=== PATIENT | female | born 1955 | race Caucasian/White ===

== ENCOUNTER → 2019-12-04 09:01 | Outpatient (CLI) | payer MEDICARE, OTHER, SELFPAY ==
--- NOTE | 2019-12-04 09:05 | DI.RAD.S_ITS ---
PROCEDURE: XR LUMBAR SPINE MIN 4V INDICATIONS: Progressive low back pain TECHNIQUE: For views of the lumbar spine were acquired. COMPARISON: None. FINDINGS: Bones: No fracture or focal osseous destruction. Multilevel degenerative endplate sclerosis and spurring. Diffuse facet arthropathy. Grade 1 retrolisthesis of L1 on L2. Trace retrolisthesis of L4 on L5. Postsurgical changes related L5-S1 posterior spinal fixation with paraspinal rods and pedicle screws. There is residual grade 1 anterolisthesis of L5 on S1. Severe narrowing of the L1-L2 disc space. Moderate narrowing of the L2-L3 disc space. Mild dextrocurvature. Bilateral hip arthroplasties. Soft tissues: Overlying bowel gas pattern is normal. No suspicious soft tissue calcifications. Oblique images: No pars defects. IMPRESSION: Multilevel lumbar spondylosis most severe at L1-L2 and L2-L3, and postsurgical changes at L5-S1 as above. Dextrocurvature Dictated by: Jean Claude Childers M.D. on 12/04/2019 at 10:22 Approved by: Jean Claude Childers M.D. on 12/04/2019 at 10:25
== END ==
PROVIDERS: PCP Family Medicine; Referring Provider Physical Medicine & Rehabilitation; Visit Provider Physical Medicine & Rehabilitation
DX: M54.5 Low back pain (principal); M47.26 Other spondylosis with radiculopathy, lumbar region; M41.9 Scoliosis, unspecified; Z98.1 Arthrodesis status; Z96.643 Presence of artificial hip joint, bilateral
CPT/HCPCS: 72110; 99214

== ENCOUNTER → 2019-12-06 19:02 | Outpatient (CLI) | payer MEDICARE, OTHER, SELFPAY ==
--- NOTE | 2019-12-06 19:04 | DI.MRI.S_ITS ---
PROCEDURE: MR LUMBAR SPINE WO CON INDICATIONS: Status post L5-S1 fusion TECHNIQUE: Noncontrast sagittal T1 spin echo and T2 fast echo, sagittal STIR, axial T1 and T2 fast spin echo through the lumbar spine. In cases with scoliosis, additional coronal T2 fast spin echo may be performed. COMPARISON: [facility] , MR, LUMBAR SPINE W/O CONTRAST, 02/23/2008, 13:53. [facility], MR, LUMBAR SPINE W/O CONTRAST, 11/09/2013, 17:35. [facility], CR, XR LUMBAR SPINE MIN 4V, 12/04/2019, 9:22. FINDINGS: Image quality: Excellent. Alignment and Curvature: There is mild L5-S1 anterolisthesis. There is mild L1-L2 retrolisthesis. There is trace L2-L3 and L3-L4 retrolisthesis. Bones: Postsurgical changes compatible with L5-S1 PLIF. Reactive endplate changes noted adjacent to the L1-L2 and L2-L3 discs. No acute vertebral body compression fractures. Spinal Cord: Conus medullaris terminates at the L1 level. Visualized cord demonstrates normal signal and size. Paraspinous Soft Tissues: No paravertebral masses. Large partially visualized left renal cyst. L1-L2: Loss of disc signal and height. Moderate, diffuse disc bulge. Mild bilateral facet hypertrophy. Mild to moderate narrowing of the central canal. Moderate right and mild left neural foraminal narrowing. No neural compression. L2-L3: Loss of disc signal and height. Mild, diffuse disc bulge. Mild bilateral facet hypertrophy. Mild narrowing of the central canal. Mild bilateral neural foraminal narrowing. No neural compression. L3-L4: Loss of disc signal. Mild bilateral facet hypertrophy. No central stenosis. Mild left neural foraminal narrowing. No neural compression. L4-L5: Loss of disc signal. Mild, diffuse disc bulge. Moderate bilateral facet hypertrophy. Mild to moderate narrowing of the central canal. Mild right and [id number] left neural foraminal narrowing. No neural compression. L5-S1: Status post fusion. Moderate bilateral facet hypertrophy. No central stenosis. No neural foraminal narrowing. No neural compression. IMPRESSION: 1. Status post L5-S1 PLIF. 2. Multilevel degenerative disease. 3. Multilevel facet arthropathy. 4. Grade 1 L1-L2 and L5-S1 degenerative spondylolisthesis. 5. No significant central canal narrowing. 6. No significant neural foraminal narrowing. 7. No neural compression. Dictated by: Julia Becker MD, PhD on 12/07/2019 at 14:44 Approved by: Julia Becker MD, PhD on 12/07/2019 at 14:49
== END ==
PROVIDERS: PCP Family Medicine; Referring Provider Physical Medicine & Rehabilitation; Visit Provider Physical Medicine & Rehabilitation
DX: M47.816 Spondylosis without myelopathy or radiculopathy, lumbar region (principal); M51.36 Other intervertebral disc degeneration, lumbar region; M43.16 Spondylolisthesis, lumbar region; M43.17 Spondylolisthesis, lumbosacral region; Z98.1 Arthrodesis status
CPT/HCPCS: 72148

== ENCOUNTER 2020-02-01 07:37 | Outpatient (CLI) | payer MEDICARE, OTHER, SELFPAY ==
[2020-02-01] VITALS (8 sets, daily range): BP systolic 147–192; BP diastolic 79–106; PULSE 60–75; RESP 11–20; TEMP 36.2; O2SAT 98–100
--- NOTE | 2020-02-01 08:47 | DI.RAD.S_ITS ---
PROCEDURE: PAIN L/SI FACET INJ/BLK 1STL INDICATIONS: SPONDYLOSIS COMPARISON: [facility], CR, XR LUMBAR SPINE MIN 4V, 12/04/2019, 9:22. [facility], MR, MR LUMBAR SPINE WO CON, 12/06/2019, 19:11. FINDINGS: Fluoroscopic spot filming was performed to verify placement of spinal needles at the L3-4 and L4-5 levels on the right, as labeled on the films. Appropriate location(s) of the needle tip(s) was confirmed by injection of iodinated contrast. IMPRESSION: Intraprocedural examination within normal limits. Dictated by: Donavan Hernandez M.D. on 02/01/2020 at 8:45 Approved by: Donavan Hernandez M.D. on 02/01/2020 at 8:45
[2020-02-01] MEDS: fentaNYL 100 MCG/2 ML INJ 50 MCG IV (09:09)
[2020-02-01] MEDS: MIDAZOLAM 5 MG/5 ML VIAL IV (09:09)
[2020-02-01] MEDS: BUPIVACAINE 0.25% (PF) VIAL 2 ML INJ (09:15)
[2020-02-01] MEDS: IOPAMIDOL 15 ML VIAL 3 ML INJ (09:17)
[2020-02-01] MEDS: BETAMETHASONE 30 MG/5 ML MDV 12 MG INJ (09:17)
--- NOTE | 2020-02-01 09:28 | P.PCN_ITS ---
Date/Time/Diagnoses Date of procedure: 02/01/20 Time of procedure: 09:28 Pre-procedure diagnosis: 1. FACET ARTHROPATHY, 2. AXIAL LBP, 3. MULTILEVEL DDD Post-procedure diagnosis: same Procedure Notes Procedure: 1. FLUOROSCOPICALLY GUIDED CONTRAST CONTROLLED FACET JOINT INJECTIONS RIGHT L3/4, L4/5 Indications: Byron is referred by Dr. Sky for treatment of Axial LBP Physician: Eddi Hsieh Total Fluoroscopy time (seconds): 9 Total sedation minutes: 12 Complications: none Procedure in detail & Post-procedure care: FINDINGS Multilevel Facet Arthropathy with Clinically significant axial LBP DESCRIPTION OF PROCEDURE Fluoroscopically guided, contrast-controlled right L3/4, L4/5 facet joint injections. Following review of allergy and review of potential side effects and complications, including, but not necessarily limited to, infection, allergic reaction, local tissue breakdown, stroke, temporary or permanent nerve injury, paralysis, and possible , the patient indicated that the patient understood and agreed to proceed. An informed consent document was signed by the patient, witnessed by a nurse, and placed in the patient's chart. Additionally, other t reatment options including medications, modalities, and physical therapy were reviewed with the patient. After review of previous anaesthesic history and IV conscious sedation the patient was deemed safe to proceed with today?s procedure with IV conscious sedation as ASA class II designation. Safety time-out was performed to confirm patient ID, procedure to be performed and site of procedure. IV sedation was accomplished with a combination of 3mg of Versed and 50mcg of Fentanyl administered by the RN after DO order, titrated to patient comfort during the course of the procedure while the patient remained responsive to all verbal commands. In the prone position, following sterile prep and drape of the lumbar region, the posterior aspect of the right L3/4, L4/5 facet joints were identified fluoroscopically. The skin was anesthetized via a 25-gauge 1.5-inch needle with 1% lidocaine solution into the corresponding facet joints. At this point, a 22- gauge 3.5-inch spinal needle was atraumatically introduced and advanced under fluoroscopic guidance into the corresponding facet joints. Following negative aspiration, injections of approximately 0.2-cc of Isovue 200 confirmed interarticular placement without vascular uptake. Radiological data, including multiple fluoroscopic views of the lumbosacral spine, reveal a spinal needle at the right L3/4, L4/5 facet joints. Subsequent views show flow of contrast material both superiorly and inferiorly within the joint space without vascular or intrathecal uptake. At this point, a total of 0.5cc including a mixture of 0.25cc Marcaine and 0.25cc betamethasone was injected without complication into each of the corresponding facet joints. The patient tolerated the procedure well without signs or symptoms of complications prior to transfer to the recovery area for further monitoring. The patient was then transferred to the recovery area where they were observed for an appropriate period of time after the injection. The patient reported a VAS score of 7 prior to the procedure and a post-procedure VAS of 0. POST OP INSTRUCTIONS The patient was provided a Pain Log to continue to record their response to the target-specific procedure prior to follow-up visit with their referring physician. Additionally, specific post-injection care instructions and a contact number to our office were provided if concerns arise regarding possible complications associated with the procedure are suspected.
== END 2020-02-01 10:02 | disposition home or self-care (01) ==
LOC: RAD 07:40
PROVIDERS: PCP Family Medicine; Referring Provider Family Medicine; Visit Provider Physical Medicine & Rehabilitation
DX: M47.816 Spondylosis without myelopathy or radiculopathy, lumbar region (principal); M54.5 Low back pain; M51.36 Other intervertebral disc degeneration, lumbar region
CPT/HCPCS: 64493; 64494; 99152; J0702; J2250; J3010

== ENCOUNTER → 2020-04-23 14:15 | Outpatient (CLI) | payer MEDICARE, OTHER, SELFPAY ==
[2020-04-23 15:32] LABS: COVID19 -Nasal RAPID Negative (Negative)
== END ==
PROVIDERS: PCP Family Medicine; Visit Provider Physical Medicine & Rehabilitation
DX: Z01.812 Encounter for preprocedural laboratory examination (principal); Z20.828 Contact with and (suspected) exposure to other viral communicable diseases
CPT/HCPCS: 87635; C9803

== ENCOUNTER 2020-04-25 14:53 | Outpatient (CLI) | payer MEDICARE, OTHER, SELFPAY ==
[2020-04-25] VITALS (7 sets, daily range): BP systolic 161–195; BP diastolic 101–123; PULSE 72–97; RESP 10–20; TEMP 36.6; O2SAT 100
--- NOTE | 2020-04-25 14:54 | DI.RAD.S_ITS ---
PROCEDURE: PAIN L/SI FACET INJ/BLK 1STL INDICATIONS: SPONDYLOSIS COMPARISON: None. FINDINGS: Fluoroscopic spot filming was performed to verify placement of spinal needles at the right L3, L4 and L5 level(s), as labeled on the films. Appropriate location(s) of the needle tip(s) was confirmed by injection of iodinated contrast. IMPRESSION: Fluoroscopy for pain management. Dictated by: Chelsie Kang M.D. on 04/25/2020 at 17:34 Approved by: Chelsie Kang M.D. on 04/25/2020 at 17:34
[2020-04-25] MEDS: MIDAZOLAM 5 MG/5 ML VIAL IV (15:45)
[2020-04-25] MEDS: fentaNYL 100 MCG/2 ML INJ 50 MCG IV (15:45)
[2020-04-25] MEDS: IOPAMIDOL 15 ML VIAL 3 ML INJ (15:47)
[2020-04-25] MEDS: BUPIVACAINE 0.5% (PF) VIAL 5 ML INJ (15:48)
--- NOTE | 2020-04-25 16:25 | PM.PROC.IR.1 ---
Date/Time/Diagnoses Date of procedure: 04/25/20 Time of procedure: 16:25 Pre-procedure diagnosis: 1. FACET ARTHROPATHY Post-procedure diagnosis: same Procedure Notes Procedure: 1. RIGHT L3, L4 AND L5 DIAGNOSTIC MB BLOCKS Indications: Byron is referred by Dr. Sky for treatment of Bilateral Axial LBP. Physician: Eddi Hsieh Total Fluoroscopy time (seconds): 6 Total sedation minutes: 10 Complications: none Procedure in detail & Post-procedure care: DESCRIPTION OF PROCEDURE Fluoroscopically guided, contrast-controlled right L3, L4 AND L5 medial branch blocks with 0.5cc of 0.5% Marcaine. Following review of allergy and review of potential side effects and complications, including, but not necessarily limited to, infection, allergic reaction, local tissue breakdown, nerve injury, paralysis, stroke and possible , the patient indicated that the patient understood and agreed to proceed. An informed consent document was signed by the patient, witnessed by a nurse, and placed in the patient's chart. After review of previous anaesthesic history and IV conscious sedation the patient was deemed safe to proceed with today's procedure with IV conscious sedation as ASA class II designation. Safety time-out was performed to confirm patient ID, procedure to be performed and site of procedure. IV sedation was accomplished with a combination of 2mg of Versed and 50mcg of Fentantyl was administered by the RN after DO order, titrated to patient comfort during the course of the procedure while the patient remained responsive to all verbal commands In the prone position, following sterile prep and drape of the lumbar region, the right L3, L4 AND L5 anatomical location of the medial branch of the dorsal ramus was identified fluoroscopically. Subsequently an anesthetic skin wheal using 1% lidocaine solution was initiated at each of the anatomical spots. Subsequently then a 22-gauge 3.5-inch spinal needle was atraumatically introduced and advanced under fluoroscopic guidance at each of the corresponding sites at the right L3, L4 and L5 MB. After negative aspiration, 0.2cc of Isovue 200 was injected, confirming placement without vascular or intrathecal uptake. Subsequently then 0.5cc of 0.5% Marcaine solution was injected at each of the corresponding sites at the right L3, L4 and L5 medial branch locations. The patient tolerated the procedure well without signs or symptoms of complications. The patient tolerated the procedure well without signs or symptoms of complications prior to transfer to the recovery area continued monitoring without incident. Post-procedure, the patient was monitored initiating provocative activities to measure the amount of relief from block of the facetogenic pain. The patient reported a VAS of 7 prior to the procedure and a post-procedure VAS of 1. It has been a pleasure to assist in the diagnostic and therapeutic care of your patient. POST OP INSTRUCTIONS The patient was provided with a Pain Log to complete over the next several hours and subsequent days prior to the patient's follow up with the ordering physician. If the patient has heat treating operator relief to the solution applied, then they may be a candidate for medial branch rhizotomy. The patient is aware, was provided, once again, with a Pain Log and will follow up with the referring physician for review and clinical correlation
== END 2020-04-25 16:15 | disposition home or self-care (01) ==
PROVIDERS: PCP Family Medicine; Referring Provider Physical Medicine & Rehabilitation; Visit Provider Physical Medicine & Rehabilitation
DX: M47.816 Spondylosis without myelopathy or radiculopathy, lumbar region (principal)
CPT/HCPCS: 64493; 64494; 99152; J2250; J3010

== ENCOUNTER → 2020-10-29 09:27 | Outpatient (CLI) | payer MEDICARE, OTHER, SELFPAY ==
[2020-10-29 12:54] LABS: COVID19 -Nasal RAPID Negative (Negative)
== END ==
PROVIDERS: PCP Family Medicine; Visit Provider Physical Medicine & Rehabilitation
DX: Z20.822 Contact with and (suspected) exposure to COVID-19 (principal)
CPT/HCPCS: 87635; C9803

== ENCOUNTER 2020-10-31 10:39 | Outpatient (CLI) | payer MEDICARE, OTHER, SELFPAY ==
[2020-10-31] VITALS (12 sets, daily range): BP systolic 134–183; BP diastolic 73–96; PULSE 74–87; RESP 11–18; TEMP 36.4–36.6; O2SAT 98–100
--- NOTE | 2020-10-31 10:43 | DI.RAD.S_ITS ---
PROCEDURE: PAIN L/S MED/LAT N RFA INDICATIONS: SPONDYLOSIS COMPARISON: None. FINDINGS: Fluoroscopic spot filming was performed to verify placement of spinal needles at the L3, L4, L5 level(s), as labeled on the films. Appropriate location(s) of the needle tip(s) was confirmed by injection of iodinated contrast. Dictated by: Jean Claude Childers M.D. on 10/31/2020 at 14:26 Approved by: Jean Claude Childers M.D. on 10/31/2020 at 14:27
[2020-10-31] MEDS: fentaNYL 100 MCG/2 ML INJ 50 MCG IV (11:37)
[2020-10-31] MEDS: MIDAZOLAM 5 MG/5 ML VIAL IV (11:37)
[2020-10-31] MEDS: BUPIVACAINE 0.5% (PF) VIAL 5 ML INJ (11:41)
[2020-10-31] MEDS: LIDOCAINE 1% 20 ML 10 ML INJ (11:41)
--- NOTE | 2020-10-31 12:17 | P.PCN_ITS ---
Date/Time/Diagnoses Date of procedure: 10/31/20 Time of procedure: 12:17 Pre-procedure diagnosis: 1. RECALCITRANT FACET ARTHROPATHY Post-procedure diagnosis: same Procedure Notes Procedure: 1. BILATERAL L3, L4 AND L5 MEDIAL BRANCH RADIOFREQUENCY NEUROTOMY Indications: Byron is referred by Dr. Sky for treatment of facet arthropathy. Physician: Eddi Hsieh Total Fluoroscopy time (seconds): 17 Total sedation minutes: 29 Complications: none Procedure in detail & Post-procedure care: DESCRIPTION OF PROCEDURE Bilateral L3, L4 and L5 medial branch radiofrequency neurotomy The patient is well known to this clinic having undergone previous facet injections with good but temporary relief. The patient has experienced appropriate, concordant relief with previous facet and median branch blocks but the patient's pain has been recalcitrant to further conservative measures. Therefore, based upon the patient's relief and persistent symptoms, the patient is considered an appropriate candidate for facet rhizotomy. All of the patient's questions regarding the risks versus benefits of the procedure, including, but not limited to, bleeding, infection, temporary as well as lasting nerve injury, paralysis, stroke, and , as well treatment alternatives were answered to satisfaction. After obtaining informed consent, denial of pertinent drug allergies, as well as being made aware of the potential risks of bleeding, infection, spinal cord trauma, paralysis, temporary and permanent nerve damage, seizure, stroke, and possible , the patient was brought to the fluoroscopy suite and positioned prone on the fluoroscopy table. The lumbar region was prepped with Betadine and covered with a fenestrated drape in the usual sterile fashion. Appropriate monitors applied including pulse oximeter, pulse, and blood pressure for regular monitoring throughout the procedure. After review of previous anaesthesic history and IV conscious sedation the patient was deemed safe to proceed with today's procedure with IV conscious sedation as ASA class II designation. Safety time-out was performed to confirm patient ID, procedure to be performed and site of procedure. IV sedation was accomplished with a combination of 4mg of Versed and 50mcg of Fentanyl administered by the RN after DO order, titrated to patient comfort during the course of the procedure while the patient remained responsive to all verbal commands. After local infiltration using 1% lidocaine, under fluoroscopic guidance, a 15- cm RF insulated needle with a 10-mm active tip was positioned parallel to the junction of the right the superior articulating process where the L5 medial branch resides. Needle placement was confirmed with motor stimulation of .5v on the right which produced local stimulation without radicular component. The stimulation was then increased to 2v with, once again, only local multifidus stimulation without radicular component. The needle was then removed and the identical procedure was performed along the length of the right L4 medial branch with motor stimulation at .7v on the right. The identical procedure was once again performed along the length of the right L3 and medial branch with motor stimulation of .5v on the right. The medial branches were then anesthetised with 0.5% marcaine. This was then followed by two discreet lesions performed at 80 degrees Celsius for 90 seconds each. The identical procedures were repeated on the left. The patient tolerated the procedure well without signs or symptoms of complications prior to transfer to the recovery area continued monitoring without incident. The patient was then transferred to the recovery area where they were observed for an appropriate period of time after the injection. The patient reported a VAS score of 9 prior to the procedure and a post-procedure VAS of 0. POST OP INSTRUCTIONS The patient was provided a Pain Log to continue to record the patient's response to the target-specific procedure prior to the patient's follow-up visit with the referring physician. Additionally, specific post-injection care instructions and a contact number to our office were provided if concerns arise regarding possible complications associated with the procedure are suspected.
== END 2020-10-31 12:33 | disposition home or self-care (01) ==
LOC: RAD 10:42
PROVIDERS: PCP Family Medicine; Referring Provider Physical Medicine & Rehabilitation; Visit Provider Physical Medicine & Rehabilitation
DX: M47.816 Spondylosis without myelopathy or radiculopathy, lumbar region (principal); M47.817 Spondylosis without myelopathy or radiculopathy, lumbosacral region
CPT/HCPCS: 64635; 64636; 99152; 99153; J2250; J3010

== ENCOUNTER 2020-12-19 07:24 | Outpatient (CLI) | payer MEDICARE, OTHER, SELFPAY ==
[2020-12-19] VITALS (7 sets, daily range): BP systolic 110–151; BP diastolic 65–81; PULSE 77–83; RESP 10–20; TEMP 36.1; O2SAT 96–100
--- NOTE | 2020-12-19 07:26 | DI.RAD.S_ITS ---
PROCEDURE: PAIN L/S TRANSFORAMINAL INJECT INDICATIONS: SPONDYLOSIS COMPARISON: Merged With [facility], , PAIN L/S MED/LAT N RFA, 10/31/2020, 11:42. FINDINGS: Fluoroscopic spot filming was performed to verify placement of a spinal needle at the L1-L2 level, as labeled on the films. Appropriate location of the needle tip was confirmed by injection of iodinated contrast. IMPRESSION: Intraprocedural examination within normal limits. Dictated by: Donavan Hernandez M.D. on 12/19/2020 at 10:12 Approved by: Donavan Hernandez M.D. on 12/19/2020 at 10:12
[2020-12-19] MEDS: MIDAZOLAM 5 MG/5 ML VIAL IV (08:21)
[2020-12-19] MEDS: fentaNYL 100 MCG/2 ML INJ 50 MCG IV (08:21)
[2020-12-19] MEDS: IOPAMIDOL 15 ML VIAL 3 ML INJ (08:28)
[2020-12-19] MEDS: BUPIVACAINE 0.25% (PF) VIAL 2 ML INJ (08:28)
[2020-12-19] MEDS: DEXAMETHASONE 10 MG/ML VIAL 20 MG INJ (08:29)
[2020-12-19] MEDS: BETAMETHASONE 30 MG/5 ML MDV 6 MG INJ (08:29)
--- NOTE | 2020-12-19 08:39 | P.PCN_ITS ---
Date/Time/Diagnoses Date of procedure: 12/19/20 Time of procedure: 08:39 Pre-procedure diagnosis: 1. FORAMINAL STENOSIS WITH LE SYMPTOMS Post-procedure diagnosis: same Procedure Notes Procedure: 1. FLUOROSCOPICALLY GUIDED CONTRAST CONTROLLED TRANSFORAMINAL EPIDURAL STEROID INJECTION - RIGHT L1/2 TFESI Indications: Byron is referred by Dr. Sky for treatment of Foraminal Stenosis with right LE Symptoms Physician: Eddi Hsieh Total Fluoroscopy time (seconds): 8 Total sedation minutes: 12 Complications: none Procedure in detail & Post-procedure care: FINDINGS Foraminal Nerve Root Compression secondary to disc disease and facet hypertrophy DESCRIPTION OF PROCEDURE Following review of allergy and review of potential side effects and complications, including, but not necessarily limited to, infection, allergic reaction, local tissue breakdown, stroke, temporary or permanent nerve injury, paralysis, and possible , the patient indicated that the patient understood and agreed to proceed. An informed consent document was signed by the patient, witnessed by a nurse, and placed in the patient's chart. Additionally, other treatment options including medications, modalities, and physical therapy were reviewed with the patient. After review of previous anaesthesic history and IV conscious sedation the patient was deemed safe to proceed with today?s procedure with IV conscious sedation as ASA class II designation. Safety time-out was performed to confirm patient ID, procedure to be performed and site of procedure. IV sedation was accomplished with a combination of 4mg of Versed and 50mcg of Fentanyl was administered by the RN after DO order, titrated to patient comfort during the course of the procedure while the patient remained responsive to all verbal commands In the prone position following sterile prep and drape of the lumbar region, the right L1/2 posterior neuroforamen was identified fluoroscopically. The skin was anesthetized via a 25-gauge 1.5-inch needle with 1% lidocaine solution. At this point, a 25-gauge 3.5-inch spinal needle was atraumatically introduced and advanced under fluoroscopic guidance through the posterior right L1/2 neurofo ramen to approximately the anterior aspect of the canal. Depth was confirmed on lateral view. Following negative aspiration, injection of approximately 1.5cc of Isovue 200 under live fluoroscopy in the AP view confirmed excellent flow along the nerve root, into the epidural space without vascular or intrathecal uptake observed Radiological data, including multiple fluoroscopic views of the lumbosacral spine, reveal a spinal needle at the right L1/2 posterior neuroforamen. Subsequent views show flow of contrast material flowing superiorly and inferiorly along the nerve root confirming epidural flow. Subsequently, a test dose of 1.5 cc of 1% lidocaine solution was administered and patient was observed for two minutes for signs or symptoms of complications, including abdominal pain, shortness of breath, bilateral upper or lower extremity weakness, nausea and vomiting, prior to steroid injection. At this point, a total of 2cc or 20mg of dexamethasone and 6mg of betamethasone was injected without incident. The patient tolerated the procedure well without signs or symptoms of complications prior to transfer to the recovery area continued monitoring without incident. The patient was then transferred to the recovery area where they were observed for an appropriate time after the injection. The patient reported a VAS score of 7 prior to the procedure and a post-procedure VAS of 0. POST OP INSTRUCTIONS The patient was provided a Pain Log to continue to record their response to the target-specific procedure prior to follow-up visit with their referring physician. Additionally, specific post-injection care instructions and a contact number to our office were provided if concerns arise regarding possible complications associated with the procedure are suspected.
== END 2020-12-19 08:53 | disposition home or self-care (01) ==
LOC: RAD 07:26
PROVIDERS: PCP Family Medicine; Referring Provider Physical Medicine & Rehabilitation; Visit Provider Physical Medicine & Rehabilitation
DX: M48.061 Spinal stenosis, lumbar region without neurogenic claudication (principal); M51.16 Intervertebral disc disorders with radiculopathy, lumbar region
CPT/HCPCS: 64483; 99152; J0702; J1100; J2250; J3010

== ENCOUNTER → 2021-03-12 12:35 | Outpatient (CLI) | payer MEDICARE, OTHER, SELFPAY ==
--- NOTE | 2021-03-12 12:40 | DI.RAD.S_ITS ---
PROCEDURE: XR LUMBAR SPINE MIN 4V INDICATIONS: back pain TECHNIQUE: 5 views of the lumbar spine were acquired, including bilateral oblique views. COMPARISON: [facility], , XR LUMBAR SPINE MIN 4V, 12/04/2019, 9:22. FINDINGS: Bones: 5 nonrib-bearing vertebrae are present. Posterior element fixation at L5-S1 with discectomy and persistent anterolisthesis. No hardware compromise is appreciated. No vertebral body compression fractures. No suspicious bony lesions. Mild levocurvature, possibly positional. Bilateral hip arthroplasties are seen. Soft tissues: Overlying bowel gas pattern is normal. No suspicious soft tissue calcifications. Oblique images: No L1 -L4 pars defects. IMPRESSION: No significant interval change. Dictated by: Govind Goode M.D. on 03/12/2021 at 13:35 Approved by: Govind Goode M.D. on 03/12/2021 at 13:38
== END ==
PROVIDERS: PCP Family Medicine; Referring Provider Physical Medicine & Rehabilitation; Visit Provider Physical Medicine & Rehabilitation
DX: M47.26 Other spondylosis with radiculopathy, lumbar region (principal); M43.17 Spondylolisthesis, lumbosacral region; M41.25 Other idiopathic scoliosis, thoracolumbar region; N28.9 Disorder of kidney and ureter, unspecified; Z98.1 Arthrodesis status; Z96.643 Presence of artificial hip joint, bilateral
CPT/HCPCS: 72110; 99214

== ENCOUNTER 2021-03-27 07:17 | Outpatient (CLI) | payer MEDICARE, OTHER, SELFPAY ==
[2021-03-27] VITALS (10 sets, daily range): BP systolic 122–186; BP diastolic 81–105; PULSE 78–83; RESP 10–23; TEMP 36.4; O2SAT 97–100
--- NOTE | 2021-03-27 07:20 | DI.RAD.S_ITS ---
PROCEDURE: PAIN L/S MED/LAT N RFA BILAT INDICATIONS: SPONDYLOSIS COMPARISON: Merged With [facility], CR, XR LUMBAR SPINE MIN 4V, 03/12/2021, 12:35. M[facility]ed With [facility], XA, PAIN L/S TRANSFORAMINAL INJECT, 12/19/2020, 8:27. FINDINGS: Fluoroscopic spot filming was performed to verify placement of spinal needles at the L5 and S1 levels on both sides, as labeled on the films. IMPRESSION: Intraprocedural examination within normal limits. Dictated by: Donavan Hernandez M.D. on 03/27/2021 at 8:38 Approved by: Donavan Hernandez M.D. on 03/27/2021 at 8:39
[2021-03-27] MEDS: MIDAZOLAM 5 MG/5 ML VIAL IV (08:50)
[2021-03-27] MEDS: fentaNYL 100 MCG/2 ML INJ 50 MCG IV (08:50)
[2021-03-27] MEDS: BUPIVACAINE 0.5% (PF) VIAL 5 ML INJ (08:57)
[2021-03-27] MEDS: LIDOCAINE 1% 20 ML INJ (08:58)
--- NOTE | 2021-03-27 09:17 | P.PCN_ITS ---
Date/Time/Diagnoses Date of procedure: 03/27/21 Time of procedure: 09:17 Pre-procedure diagnosis: 1. RECALCITRANT FACET ARTHROPATHY Post-procedure diagnosis: same Procedure Notes Procedure: 1. BILATERAL L5 MEDIAL BRANCH RADIOFREQUENCY NEUROTOMY AND BILATERAL S1 DORSAL RAMUS BRANCH RADIOFREQUENCY NEUROTOMY. Indications: Byron is referred by Dr. Sky for treatment of facet arthropathy. Physician: Eddi Hsieh Total Fluoroscopy time (seconds): 17 Total sedation minutes: 22 Complications: none Procedure in detail & Post-procedure care: DESCRIPTION OF PROCEDURE Bilateral L5 medial branch radiofrequency neurotomy and bilateral S1 dorsal ramus branch radiofrequency neurotomy under fluoroscopy with conscious sedation. The patient is well known to this clinic having undergone previous facet injections with good but temporary relief. The patient has experienced appropriate, concordant relief with previous facet and median branch blocks but the patient's pain has been recalcitrant to further conservative measures. Therefore, based upon the patient's relief and persistent symptoms, the patient is considered an appropriate candidate for facet rhizotomy. All of the patient's questions regarding the risks versus benefits of the procedure, including, but not limited to, bleeding, infection, temporary as well as lasting nerve injury, paralysis, stroke, and , as well treatment alternatives were answered to satisfaction. After obtaining informed consent, denial of pertinent drug allergies, as well as being made aware of the potential risks of bleeding, infection, spinal cord trauma, paralysis, temporary and permanent nerve damage, seizure, stroke, and possible , the patient was brought to the fluoroscopy suite and positioned prone on the fluoroscopy table. The lumbar region was prepped with Betadine and covered with a fenestrated drape in the usual sterile fashion. Appropriate monitors applied including pulse oximeter, pulse, and blood pressure for regular monitoring throughout the procedure. After review of previous anaesthesic history and IV conscious sedation the patient was deemed safe to proceed with today?s procedure with IV conscious sedation as ASA class II designation. Safety time-out was performed to confirm patient ID, procedure to be performed and site of procedure. IV sedation was accomplished with a combination of 3mg of Versed and 50mcg of Fentanyl was administered by the RN after DO order, titrated to patient comfort during the course of the procedure while the patient remained responsive to all verbal commands. After local infiltration using 1% lidocaine, under fluoroscopic guidance, a 10- cm RF insulated needle with a 10-mm active tip was positioned parallel to the junction of the bilateral sacral ala and the superior articulating process where the S1 dorsal ramus resides. Needle placement was confirmed with motor stimulation of .5v on the right; motor stimulation of .6v on the left, which produced local stimulation without radicular component. The stimulation was then increased to 2v with, once again, only local multifidus stimulation without radicular component. This was then followed by two discreet lesions performed at 80 degrees Celsius for 90 seconds each. The needle was then removed and the identical procedure was performed along the length of the bilateral L5 medial branch with motor stimulation at .7v on the right; motor stimulation at .6v on the left. The patient tolerated the procedure well without signs or symptoms of complications prior to transfer to the recovery area continued monitoring without incident. The patient was then transferred to the recovery area where they were observed for an appropriate period of time after the injection. The patient reported a VAS score of 9 prior to the procedure and a post- procedure VAS of 0. POST OP INSTRUCTIONS The patient was provided a Pain Log to continue to record the patient's response to the target-specific procedure prior to the patient's follow-up visit with the referring physician. Additionally, specific post-injection care instructions and a contact number to our office were provided if concerns arise regarding possible complications associated with the procedure are suspected.
== END 2021-03-27 09:34 | disposition home or self-care (01) ==
PROVIDERS: PCP Family Medicine; Referring Provider Physical Medicine & Rehabilitation; Visit Provider Physical Medicine & Rehabilitation
DX: M47.817 Spondylosis without myelopathy or radiculopathy, lumbosacral region (principal); M47.816 Spondylosis without myelopathy or radiculopathy, lumbar region
CPT/HCPCS: 64635; 64636; 99152; J2250; J3010

== ENCOUNTER → 2021-09-08 10:04 | Outpatient (CLI) | payer MEDICARE, OTHER, SELFPAY ==
--- NOTE | 2021-09-08 10:07 | DI.RAD.S_ITS ---
PROCEDURE: XR KNEE RT 3V INDICATIONS: right medial knee pain TECHNIQUE: 3 views of the knee were acquired. COMPARISON: None. FINDINGS: Bones: No fractures or dislocations. Small osteophytes most pronounced at the patella. No suspicious bony lesions. Soft tissues: No joint effusion. No suspicious soft tissue calcifications. IMPRESSION: [id number] right knee DJD. Dictated by: Navid Baig M.D. on 09/08/2021 at 11:30 Approved by: Navid Baig M.D. on 09/08/2021 at 11:31
== END ==
PROVIDERS: PCP Family Medicine; Referring Provider Physical Medicine & Rehabilitation; Visit Provider Physical Medicine & Rehabilitation
DX: M17.11 Unilateral primary osteoarthritis, right knee (principal); M41.25 Other idiopathic scoliosis, thoracolumbar region; N28.9 Disorder of kidney and ureter, unspecified; M47.816 Spondylosis without myelopathy or radiculopathy, lumbar region; Z96.643 Presence of artificial hip joint, bilateral; Z98.1 Arthrodesis status
CPT/HCPCS: 73562; 99215

== ENCOUNTER 2022-03-05 09:51 | Outpatient (CLI) | payer MEDICARE, OTHER, SELFPAY ==
[2022-03-05] VITALS (9 sets, daily range): BP systolic 137–161; BP diastolic 87–107; PULSE 79–94; RESP 12–20; TEMP 36.3; O2SAT 97–100
--- NOTE | 2022-03-05 09:53 | DI.RAD.S_ITS ---
PROCEDURE: PAIN L INTERLAMINAR/CAUDAL INJ INDICATIONS: SPINAL STENOSIS COMPARISON: None. FINDINGS: Fluoroscopic spot filming was performed to verify placement of spinal needles at the S2 level(s), as labeled on the films. Appropriate location(s) of the needle tip(s) was confirmed by injection of iodinated contrast. IMPRESSION: Fluoro guidance was provided intraoperatively for caudal steroid injection performed by the ordering physician. Dictated by: Joey Bai M.D. on 03/05/2022 at 11:17 Approved by: Joey Bai M.D. on 03/05/2022 at 11:18
[2022-03-05] MEDS: MIDAZOLAM 2 MG/2 ML VIAL IV (10:48)
[2022-03-05] MEDS: IOPAMIDOL 15 ML VIAL 3 ML INJ (10:53)
[2022-03-05] MEDS: DEXAMETHASONE 10 MG/ML VIAL 20 MG INJ (10:54)
[2022-03-05] MEDS: BUPIVACAINE 0.25% (PF) VIAL 2 ML INJ (10:54)
[2022-03-05] MEDS: BETAMETHASONE 30 MG/5 ML MDV 12 MG INJ (10:55)
--- NOTE | 2022-03-05 11:07 | PM.PROC.IR.1 ---
Date/Time/Diagnoses Date of procedure: 03/05/22 Time of procedure: 11:07 Pre-procedure diagnosis: 1. MULTILEVEL SPINAL STENOSIS 2. POST FUSION SYNDROME Post-procedure diagnosis: same Procedure Notes Procedure: 1. FLUOROSCOPICALLY GUIDED CONTRAST CONTROLLED CAUDAL EPIDURAL STEROID INJECTION, Indications: Byron is referred by Dr. Sky for treatment of Multilevel Stenosis Physician: Eddi Hsieh Total Fluoroscopy time (seconds): 16 Total sedation minutes: 13 Complications: none Procedure in detail & Post-procedure care: FINDINGS Multilevel Stenosis S/p Lami/Fusion Syndrome DESCRIPTION OF PROCEDURE Fluoroscopically guided, contrast controlled caudal epidural steroid injection with Conscious Sedation Following review of allergy and review of potential side effects and complications, including but not necessarily limited to infection, allergic reaction, local tissue breakdown, temporary or permanent nerve injury, stroke, paralysis, and possible , the patient indicated that they understood and agreed to proceed. An informed consent document was signed by the patient, witnessed by a nurse, and placed in the patient's chart. Additionally, other treatment options including medications, modalities, and physical therapy were reviewed with the patient. After review of previous anaesthesic history and IV conscious sedation the patient was deemed safe to proceed with today?s procedure with IV conscious sedation as ASA class II designation. Safety time-out was performed to confirm patient ID, procedure to be performed and site of procedure. IV sedation was accomplished with a combination of 2mg of Versed administered by the RN after DO order, titrated to patient comfort during the course of the procedure while the patient remained responsive to all verbal commands In the prone position, following sterile prep and drape of the lumbar region, the sacral hiatus was identified fluoroscopically. The skin was anesthetized via a 25-gauge, 1.5-inch needle with approximately 2cc of 1% lidocaine solution. At this point, a 25-gauge, 3inch needle was atraumatically introduced and advanced under fluoroscopic guidance to the corresponding sacral hiatus and entering the sacral canal. Following negative aspiration, injection of approximately 0.3cc of Isovue 300 confirmed interarticular placement without vascular uptake. Radiological data, including multiple fluoroscopic views of the lumbosacral spine, reveal a spinal needle in the sacral canal through the sacral hiatus. Subsequent views show flow of contrast material superiorly and inferiorly in the sacral canal without vascular or intrathecal uptake. At this point, a total of 6cc including 3cc or 18mg of betamethasone and 3cc of 1% lidocaine solution was injected without complication. The patient tolerated the procedure well without signs or symptoms of complications prior to transfer to the recovery area continued monitoring without incident. The patient was then transferred to the recovery area where they were observed for an appropriate period of time after the injection. The patient reported a VAS score of 10 prior to the procedure and a post-procedure VAS of 2. POST OP INSTRUCTIONS The patient was provided a Pain Log to continue to record their response to the target-specific procedure prior to their follow-up visit with the referring physician. Additionally, specific post-injection care instructions and a contact number to our office were provided if concerns arise regarding possible complications associated with the procedure are suspected.
== END 2022-03-05 11:22 | disposition home or self-care (01) ==
PROVIDERS: PCP Family Medicine; Referring Provider Physical Medicine & Rehabilitation; Visit Provider Physical Medicine & Rehabilitation
DX: M48.061 Spinal stenosis, lumbar region without neurogenic claudication (principal); M96.1 Postlaminectomy syndrome, not elsewhere classified; Z98.1 Arthrodesis status
CPT/HCPCS: 62323; 99152; J0702; J1100; J2250; J3490